=== PATIENT | male | born 1955 | race Caucasian/White ===

== ENCOUNTER 2021-04-29 14:54 | Outpatient (REF) | payer MEDICARE, SELFPAY ==
[2021-05-03 09:47] LABS: Testosterone, Total 275 ng/dL (250-1100)
== END 2021-04-29 14:55 | disposition home or self-care (01) ==
LOC: HO.MANLDS 14:54
PROVIDERS: PCP Internal Medicine; Visit Provider Internal Medicine
DX: R53.83 Other fatigue (principal)
CPT/HCPCS: 36415; 84403